=== PATIENT | male | born 1960 | race Two or more races ===

== ENCOUNTER 2020-02-25 11:06 | Outpatient (CLI) | payer OTHER | END 2020-02-25 11:13 | disposition home or self-care (01) | LOC: RAD 11:06 | DX: M25.572 Pain in left ankle and joints of left foot (principal); M25.571 Pain in right ankle and joints of right foot; R20.2 Paresthesia of skin; M51.26 Other intervertebral disc displacement, lumbar region; M79.672 Pain in left foot ==

== ENCOUNTER 2020-04-16 07:51 | Outpatient (CLI) | payer OTHER | END 2020-04-16 08:02 | disposition home or self-care (01) | LOC: SONOGRAMA 07:51 | DX: N28.1 Cyst of kidney, acquired (principal) ==